=== PATIENT | female | born 1930 | race Caucasian/White ===

== ENCOUNTER → 2016-09-18 | Outpatient (CLI) | payer MEDICARE, OTHER, MEDICAID | END | disposition home or self-care (01) | LOC: GT 05:59 | PROVIDERS: ATTEND Family Medicine | DX: Z79.1 Long term (current) use of non-steroidal anti-inflammatories (NSAID) (principal); I25.2 Old myocardial infarction ==

== ENCOUNTER → 2016-10-23 | Outpatient (CLI) | payer MEDICARE, OTHER, MEDICAID | LOC: GT 08:48 | PROVIDERS: ATTEND Family Medicine | DX: I10 Essential (primary) hypertension (principal); D51.9 Vitamin B12 deficiency anemia, unspecified; E08.21 Diabetes mellitus due to underlying condition with diabetic nephropathy ==

== ENCOUNTER → 2016-11-20 | Outpatient (CLI) | payer MEDICARE, OTHER, MEDICAID | END | disposition home or self-care (01) | LOC: GT 07:11 | PROVIDERS: ATTEND Family Medicine | DX: I25.2 Old myocardial infarction (principal); Z79.01 Long term (current) use of anticoagulants ==

== ENCOUNTER → 2016-11-23 | Outpatient (CLI) | payer MEDICARE, OTHER, MEDICAID | END | disposition home or self-care (01) | LOC: GT 08:28 | PROVIDERS: ATTEND Family Medicine | DX: Z79.01 Long term (current) use of anticoagulants (principal); Z86.718 Personal history of other venous thrombosis and embolism ==

== ENCOUNTER → 2016-12-21 | Outpatient (CLI) | payer MEDICARE, OTHER, MEDICAID | END | disposition home or self-care (01) | LOC: LAB.O 06:35 | PROVIDERS: ATTEND Family Medicine | DX: Z79.01 Long term (current) use of anticoagulants (principal) ==

== ENCOUNTER → 2017-01-22 | Outpatient (CLI) | payer MEDICARE, OTHER, MEDICAID | END | disposition home or self-care (01) | LOC: GT 07:13 | PROVIDERS: ATTEND Family Medicine | DX: Z79.01 Long term (current) use of anticoagulants (principal) | CPT/HCPCS: 36415; 85610; P9603 ==

== ENCOUNTER → 2017-02-17 | Outpatient (CLI) | payer MEDICARE, OTHER, MEDICAID | END | disposition home or self-care (01) | LOC: GMAH 06:37 | PROVIDERS: ATTEND Family Medicine | DX: Z79.01 Long term (current) use of anticoagulants (principal) ==

== ENCOUNTER → 2017-03-03 | Outpatient (CLI) | payer MEDICARE, OTHER, MEDICAID | END | disposition home or self-care (01) | LOC: GT 07:07 | PROVIDERS: ATTEND Family Medicine | DX: I25.2 Old myocardial infarction (principal); D51.9 Vitamin B12 deficiency anemia, unspecified; E08.21 Diabetes mellitus due to underlying condition with diabetic nephropathy ==

== ENCOUNTER → 2017-03-16 | Outpatient (CLI) | payer MEDICARE, OTHER, MEDICAID | LOC: GT 06:01 | PROVIDERS: ATTEND Family Medicine | DX: Z79.01 Long term (current) use of anticoagulants (principal) | CPT/HCPCS: 36415; 85610; P9603 ==

== ENCOUNTER → 2017-03-19 | Outpatient (CLI) | payer MEDICARE, OTHER, MEDICAID | LOC: GT 06:09 | PROVIDERS: ATTEND Family Medicine | DX: I25.2 Old myocardial infarction (principal); Z79.01 Long term (current) use of anticoagulants ==

== ENCOUNTER → 2017-04-14 | Outpatient (CLI) | payer MEDICARE, OTHER, MEDICAID | LOC: GT 05:44 | PROVIDERS: ATTEND Family Medicine | DX: Z79.01 Long term (current) use of anticoagulants (principal) | CPT/HCPCS: 36415; 85610; P9603 ==

== ENCOUNTER → 2017-04-21 | Outpatient (CLI) | payer MEDICARE, OTHER, MEDICAID | END | disposition home or self-care (01) | LOC: GT 07:06 | PROVIDERS: ATTEND Family Medicine | DX: Z79.01 Long term (current) use of anticoagulants (principal); I25.2 Old myocardial infarction | CPT/HCPCS: 36415; 85610; P9603 ==

== ENCOUNTER → 2017-04-23 | Outpatient (CLI) | payer MEDICARE, OTHER, MEDICAID | END | disposition home or self-care (01) | LOC: GT 06:06 | PROVIDERS: ATTEND Family Medicine | DX: Z79.01 Long term (current) use of anticoagulants (principal); I25.2 Old myocardial infarction ==

== ENCOUNTER → 2017-04-28 | Outpatient (CLI) | payer MEDICARE, OTHER, MEDICAID | END | disposition home or self-care (01) | LOC: GT 06:34 | PROVIDERS: ATTEND Family Medicine | DX: Z79.01 Long term (current) use of anticoagulants (principal) | CPT/HCPCS: 36415; 85610; P9603 ==

== ENCOUNTER → 2017-05-12 | Outpatient (CLI) | payer MEDICARE, OTHER, MEDICAID | END | disposition home or self-care (01) | LOC: GT 06:00 | PROVIDERS: ATTEND Family Medicine | DX: Z79.01 Long term (current) use of anticoagulants (principal) ==

== ENCOUNTER → 2017-05-14 | Outpatient (CLI) | payer MEDICARE, OTHER, MEDICAID | END | disposition home or self-care (01) | LOC: GT 05:43 | PROVIDERS: ATTEND Family Medicine | DX: Z79.01 Long term (current) use of anticoagulants (principal) ==

== ENCOUNTER → 2017-05-21 | Outpatient (CLI) | payer MEDICARE, OTHER, MEDICAID | END | disposition home or self-care (01) | LOC: GT 06:09 | PROVIDERS: ATTEND Family Medicine | DX: Z79.01 Long term (current) use of anticoagulants (principal) ==

== ENCOUNTER → 2017-06-23 | Outpatient (CLI) | payer MEDICARE, OTHER, MEDICAID | END | disposition home or self-care (01) | LOC: GT 06:38 | PROVIDERS: ATTEND Family Medicine | DX: Z79.01 Long term (current) use of anticoagulants (principal); I25.2 Old myocardial infarction ==

== ENCOUNTER → 2017-06-30 | Outpatient (CLI) | payer MEDICARE, OTHER, MEDICAID | END | disposition home or self-care (01) | LOC: GT 08:02 | PROVIDERS: ATTEND Family Medicine | DX: Z79.01 Long term (current) use of anticoagulants (principal); I25.2 Old myocardial infarction ==

== ENCOUNTER → 2017-07-30 | Outpatient (CLI) | payer MEDICARE, OTHER, MEDICAID | END | disposition home or self-care (01) | LOC: GT 06:18 | PROVIDERS: ATTEND Family Medicine | DX: Z79.01 Long term (current) use of anticoagulants (principal); I25.2 Old myocardial infarction; I10 Essential (primary) hypertension ==

== ENCOUNTER → 2017-08-25 | Outpatient (CLI) | payer MEDICARE, OTHER, MEDICAID | LOC: GT 08:23 | PROVIDERS: ATTEND Family Medicine | DX: I10 Essential (primary) hypertension (principal); I25.2 Old myocardial infarction ==

== ENCOUNTER → 2017-09-09 | Outpatient (CLI) | payer MEDICARE, OTHER, MEDICAID | LOC: GT 08:44 | PROVIDERS: ATTEND Family Medicine | DX: Z79.01 Long term (current) use of anticoagulants (principal); I25.2 Old myocardial infarction; I10 Essential (primary) hypertension | CPT/HCPCS: 36415; 85610; P9603 ==

== ENCOUNTER → 2017-09-15 | Outpatient (CLI) | payer MEDICARE, OTHER, MEDICAID | LOC: GT 07:39 | PROVIDERS: ATTEND Family Medicine | DX: I25.2 Old myocardial infarction (principal); I10 Essential (primary) hypertension; Z79.01 Long term (current) use of anticoagulants ==

== ENCOUNTER → 2017-10-04 | Outpatient (CLI) | payer MEDICARE, OTHER, MEDICAID | LOC: GT 06:35 | PROVIDERS: ATTEND Family Medicine | DX: Z79.01 Long term (current) use of anticoagulants (principal) | CPT/HCPCS: 36415; 85610; P9603 ==

== ENCOUNTER → 2017-10-06 | Outpatient (CLI) | payer MEDICARE, OTHER, MEDICAID | LOC: GT 06:52 | PROVIDERS: ATTEND Family Medicine | DX: Z79.01 Long term (current) use of anticoagulants (principal) ==

== ENCOUNTER → 2017-10-07 | Outpatient (CLI) | payer MEDICARE, OTHER, MEDICAID | LOC: LAB.O 08:50 | PROVIDERS: ATTEND Family Medicine | DX: Z79.01 Long term (current) use of anticoagulants (principal) ==

== ENCOUNTER → 2017-10-13 | Outpatient (CLI) | payer MEDICARE, OTHER, MEDICAID | LOC: GT 06:43 | PROVIDERS: ATTEND Family Medicine | DX: I25.2 Old myocardial infarction (principal); I10 Essential (primary) hypertension; Z79.01 Long term (current) use of anticoagulants | CPT/HCPCS: 36415; 85610; P9603 ==

== ENCOUNTER → 2017-10-22 | Outpatient (CLI) | payer MEDICARE, OTHER, MEDICAID | END | disposition home or self-care (01) | LOC: GT 07:35 | PROVIDERS: ATTEND Family Medicine | DX: D51.9 Vitamin B12 deficiency anemia, unspecified (principal); Z79.01 Long term (current) use of anticoagulants ==

== ENCOUNTER → 2017-11-10 | Outpatient (CLI) | payer MEDICARE, OTHER, MEDICAID | LOC: GT 06:51 | PROVIDERS: ATTEND Family Medicine | DX: Z79.01 Long term (current) use of anticoagulants (principal) | CPT/HCPCS: 36415; 85610; P9603 ==

== ENCOUNTER 2018-01-21 11:08 | Emergency (ER) | payer MEDICARE, OTHER ==
--- NOTE | 2018-01-21 11:46 | ED.PDOC ---
History of Present Illness - General Chief Complaint: Back Pain or Injury Stated Complaint: Low back discomfort Time Seen by Provider: 01/21/18 11:09 Source: patient, EMS Exam Limitations: no limitations - History of Present Illness Initial Comments: Kaitlynn Salazar 87 y/o female NH resident at [facility] patient stated felt dizzy after trying to get up from her bed and fell on her back today.Stated has dull pain lower back denies any other injuries elsewhere.Remembers incident.No LOC.Past records showed that she had compressed fractures lower back,HTN,DVT on anticoagulation.No bowel or bladder dysfunction. Timing/Duration: 1-3 hours Quality/Severity: moderate, dullness Back Pain Location: lumbar spine, paraspinous muscles Back Pain Radiation: other - none Method of Injury/Prior Injury: fell Improving Factors: rest Worsening Factors: movement Associated Symptoms: lower back pain Allergies/Adverse Reactions: Allergies NO KNOWN ALLERGY Allergy (Verified 01/21/18 11:27) Home Medications: Ambulatory Orders Simvastatin 40 mg PO BEDTIME 01/01/14 Warfarin Sodium [Coumadin] 2.5 mg PO SUTUTHSA 01/01/14 Warfarin Sodium [Coumadin] 5 mg PO MOWEFR 01/01/14 amLODIPine BESYLATE [Norvasc] 5 mg PO DAILY #0 tab 01/02/14 Potassium Chloride [Potassium Chloride ER] 20 meq PO BID #4 tab 11/19/14 Acetaminophen [Pain Relief Extra Strengt] 1 - 2 ea PO Q6H PRN 08/28/15 Losartan Potassium & Hydrochlo [Losartan Potassium/Hydroc 100-25 mg] 1 tab PO DAILY 08/28/15 Polyethylene Glycol 3350 [Miralax] 17 gm PO DAILY PRN 08/28/15 Meloxicam [Mobic] 7.5 mg PO DAILY #30 tab 10/02/15 Metformin HCl 500 mg PO BEDTIME #0 10/02/15 Tramadol HCl 50 mg PO Q6H PRN #20 tab 10/02/15 Lidocaine [Lidoderm] 5 % TOP Q12HR #7 dis 10/05/15 Acetamin W/Cod #3 Tab [Tylenol w/CODEINE #3] 1 ea PO Q12HRS PRN #20 tab Losartan Potassium & Hydrochlo [Losartan Potassium/Hydroc 100-12.5 mg] 1 tab PO DAILY #30 tab 01/21/18 Review of Systems - Review of Systems Constitutional: States: no symptoms reported EENTM: States: no symptoms reported Respiratory: States: no symptoms reported Cardiology: States: no symptoms reported Genitourinary: States: no symptoms reported Musculoskeletal: States: back pain - chronic Skin: States: no symptoms reported Neurological: States: other - dizziness Endocrine: States: no symptoms reported Hematologic/Lymphatic: States: no symptoms reported Past Medical History (General) - Patient Medical History Hx Seizures: No Hx Stroke: No Hx Asthma: No Hx of COPD: No Hx Cardiac Disorders: Yes - hypercholesterolemia; DC; DVT Hx Congestive Heart Failure: No Hx Pacemaker: No Hx Hypertension: Yes Hx Diabetes: Yes Hx Gastroesophageal Reflux: Yes Hx MRSA: No Surgical History: other - both knees - Vaccination History Hx Influenza Vaccination: Yes Hx Pneumococcal Vaccination: Yes - Social History Hx Tobacco Use: No Hx Alcohol Use: No Hx Substance Use: No Hx Physical Abuse: No Hx Emotional Abuse: No - Activities of Daily Living [facility]/Assisted Living (if applicable):: [facility] Grooming Ability: Standby Assistance Eating (Feeding) Ability: Standby Assistance Toileting Ability: Standby Assistance Family Medical History - Family History Father Family History: Unknown Living Status: Age at (years of age): 80s Cause of : Cancer Mother Living Status: Age at (years of age): 70s Cause of : Cancer Physical Exam - Physical Exam General Appearance: Alert, Comfortable, No apparent distress Eyes, Ears, Nose, Throat Exam: normal ENT inspection, pharynx normal Neck Exam: non-tender, full range of motion, normal inspection Cardiovascular/Respiratory: regular rate, rhythm, no M/R/G, normal peripheral pulses, no JVD Peripheral Pulses: radial,right: 2+, radial,left: 2+ Gastrointestinal/Abdominal: normal bowel sounds, non tender, soft, no pulsatile mass Back Exam: no CVA tenderness, no vertebral tenderness Extremity Exam: no evidence of injury, normal range of motion, pedal edema - 3+ Neurologic: no motor/sensory deficits, alert, oriented x 3 Skin Exam: normal color, warm/dry Progress - Progress Progress: 01/21/18 11:49 Vital Signs - 8 hr 01/21/18 11:18 Temperature 97.1 F L Pulse Rate [ 72 Left Radial] Respiratory 18 Rate Blood Pressure 123/76 [Left Arm] O2 Sat by Pulse 95 Oximetry 01/21/18 13:46 Vital Signs - 8 hr 01/21/18 11:18 Temperature 97.1 F L Pulse Rate [ 72 Left Radial] Respiratory 18 Rate Blood Pressure 123/76 [Left Arm] O2 Sat by Pulse 95 Oximetry - Results/Orders Results/Orders: 01/21/18 11:49 IV Care:Saline Lock per Protoc QSHIFT 01/21/18 11:51 EKG Assessment ONCE 01/21/18 12:00 EKG STAT 01/21/18 12:10 URINE CULTURE W/COLONY COUNT Stat 01/21/18 13:18 Magnesium Sulfate Premix 2Gm 2 gm Premix Bag 1 bag IVPB ONCE Laboratory Results - last 24 hr 01/21/18 01/21/18 01/21/18 12:10 12:10 13:15 WBC 12.3 H RBC 4.54 Hgb 14.5 Hct 42.6 MCV 93.9 MCH 32.0 H MCHC 34.1 RDW 14.5 Plt Count 253 MPV 7.5 Absolute Neuts (auto) 10.50 H Absolute Lymphs (auto) 1.00 Absolute Monos (auto) 0.80 Absolute Eos (auto) 0.00 Absolute Basos (auto) 0.00 Neutrophils % 85.0 H Lymphocytes % 8.1 L Monocytes % 6.6 Eosinophils % 0.1 L Basophils % 0.2 PT 45.2 H* INR 3.950 H* PTT (SP) 54.8 H Sodium 127 L Potassium 3.8 Chloride 93 L Carbon Dioxide 24 Anion Gap 13.8 BUN 23 H Creatinine 0.74 BUN/Creatinine Ratio 31.1 H Random Glucose 135 H Serum Osmolality 260.9 L Lactic Acid 1.1 Calcium 10.0 Magnesium 1.6 L Total Bilirubin 0.8 Direct Bilirubin 0.2 Indirect Bilirubin 0.6 AST 21 ALT 18 Alkaline Phosphatase 65 Creatine Kinase 62 CK-MB (CK-2) 5.5 H* CK-MB (CK-2) % Not Reportable Troponin I < 0.02 B-Natriuretic Peptide 45.5 Serum Total Protein 7.2 Albumin 4.1 Urine Color Cookie H Urine Appearance Sl cloudy Urine pH 6.5 Ur Specific [place] 1.025 Urine Protein Negative Urine Glucose (UA) Negative Urine Ketones Negative Urine Blood Trace-intact H Urine Nitrite Negative Urine Bilirubin Negative Urine Urobilinogen 0.2 Ur Leukocyte Esterase Small H Urine RBC 1-3 Urine WBC 3-5 H Ur Epithelial Cells 1-3 Urine Bacteria 1+ Urine Mucus Small - EKG/XRAY/CT EKG: Sinus, RBBB Comments: HR-71;narrow Q-waves 111 XRAY: chest - cardiomegaly no chf Xray Comments: Lumbar Spine old compressed FX lumbar spine Departure - Departure Clinical Impression: Dizziness, nonspecific, Chronic hyponatremia, Hypomagnesemia Fall at residential Qualifiers: Encounter type: initial encounter Qualified Code(s): W19.XXXA - Unspecified fall, initial encounter; Y92.129 - Unspecified place in residential as the place of occurrence of the external cause Back pain Qualifiers: Back pain location: low back pain Chronicity: unspecified Back pain laterality : midline Sciatica presence: without sciatica Qualified Code(s): M54.5 - Low back pain Time of Disposition: 14:26 Disposition: Discharge to Asst Living Condition: Fair Departure Forms: ED Discharge - Pt. Copy, Patient Portal Self Enrollment Instructions: DI for Low Back Pain, Dizziness, Nonvertigo, (DC) Referrals: Koha Reveles MD [Primary Care Provider] - 1-2 Weeks Prescriptions: Acetamin W/Cod #3 Tab [Tylenol w/CODEINE #3] 1 ea PO Q12HRS PRN #20 tab PRN Reason: Pain Losartan Potassium & Hydrochlo [Losartan Potassium/Hydroc 100-12.5 mg] 1 tab PO DAILY #30 tab Home Medications: Ambulatory Orders Simvastatin 40 mg PO BEDTIME 01/01/14 Warfarin Sodium [Coumadin] 2.5 mg PO SUTUTHSA 01/01/14 Warfarin Sodium [Coumadin] 5 mg PO MOWEFR 01/01/14 amLODIPine BESYLATE [Norvasc] 5 mg PO DAILY #0 tab 01/02/14 Potassium Chloride [Potassium Chloride ER] 20 meq PO BID #4 tab 11/19/14 Acetaminophen [Pain Relief Extra Strengt] 1 - 2 ea PO Q6H PRN 08/28/15 Losartan Potassium & Hydrochlo [Losartan Potassium/Hydroc 100-25 mg] 1 tab PO DAILY 08/28/15 Polyethylene Glycol 3350 [Miralax] 17 gm PO DAILY PRN 08/28/15 Meloxicam [Mobic] 7.5 mg PO DAILY #30 tab 10/02/15 Metformin HCl 500 mg PO BEDTIME #0 10/02/15 Tramadol HCl 50 mg PO Q6H PRN #20 tab 10/02/15 Lidocaine [Lidoderm] 5 % TOP Q12HR #7 dis 10/05/15 Acetamin W/Cod #3 Tab [Tylenol w/CODEINE #3] 1 ea PO Q12HRS PRN #20 tab Losartan Potassium & Hydrochlo [Losartan Potassium/Hydroc 100-12.5 mg] 1 tab PO DAILY #30 tab 01/21/18 Additional Instructions: HOLD COUMADIN FOR TODAY AND TOMORROW;RESUME Wednesday;Discontinue Losartan 100-25;Give Losartan 100-12.5 daily for high blood pressure.Follow up with primary Md 24 January 2018;Return to ER as needed
--- NOTE | 2018-01-21 12:54 | RAD ---
EXAM DESCRIPTION: Chest,1 View CLINICAL HISTORY: 87 years Female, dizzy COMPARISON: Previous study November 19, 2014 TECHNIQUE: AP portable chest. FINDINGS: Heart size is large with normal pulmonary vascularity. Calcified aorta is noted. No consolidating infiltrate. No pulmonary mass or worrisome nodule. No pneumothorax or pleural effusion. Degenerative changes are prominent in the right shoulder. IMPRESSION: Large heart without congestive failure. Electronically signed by: Abbe Villela MD 01/21/2018 12:53 PM CDT
--- NOTE | 2018-01-21 12:57 | RAD ---
EXAM DESCRIPTION: Lumbar Spine 3 Views CLINICAL HISTORY: fall/pain COMPARISON: None Available. TECHNIQUE: AP/lateral/coned-down lateral FINDINGS: Leftward curvature of the lower thoracic and upper lumbar spine is seen with extensive degenerative spurring. Calcified aorta is noted which appears ectatic. Correlate with CT or sono findings. Aorta measures up to 2.8 cm in diameter. Frontal view shows intact pedicles and transverse processes. Sacrum appears osteopenic with narrow SI joints. Lateral view shows no acute lumbar vertebral compressions. However chronic vertebral plana compression is seen at L1 with extensive resorption of the middle and anterior aspects of the compressed vertebral body. Lesser compressions in the lower T-spine appear chronic. Severe disc space narrowing is seen at L3-4 with lesser changes at L1-2 and L2-3 with prominent anterior posterior spurring. Degenerative retrolisthesis of L3 on L4 is noted measuring 9 mm. Bones are markedly osteoporotic. No destructive lesion. 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 Calcified ectatic abdominal aorta. Electronically signed by: Abbe Villela MD 01/21/2018 12:56 PM CDT
[2018-01-21] MEDS ORDERED: MAGNESIUM SULFATE PREMIX 2GM 2 GM in PREMIX BAG 1 BAG IVPB ONE (13:18)
[2018-01-21] MEDS ORDERED: MAGNESIUM SULFATE PREMIX 2GM 50 ML IVPB ONE (13:26)
[2018-01-21 16:49] VITALS: BP 134/72; TEMP 96.8; O2SAT 95
== END 2018-01-21 16:35 ==
LOC: ER 11:08
DX: M54.5 Low back pain (principal); R42 Dizziness and giddiness; E87.1 Hypo-osmolality and hyponatremia; E83.42 Hypomagnesemia; I45.10 Unspecified right bundle-branch block; I51.7 Cardiomegaly; I25.2 Old myocardial infarction; I10 Essential (primary) hypertension; E11.9 Type 2 diabetes mellitus without complications; K21.9 Gastro-esophageal reflux disease without esophagitis; Z86.718 Personal history of other venous thrombosis and embolism; Z79.01 Long term (current) use of anticoagulants; W19.XXXA Unspecified fall, initial encounter; Y92.122 Bedroom in nursing home as the place of occurrence of the external cause
CPT/HCPCS: 36415; 71045; 72100; 80048; 80076; 81001; 82550; 82553; 83605; 83880; 84484; 85025; 85610; 85730; 87086; 93005; J3475

== ENCOUNTER → 2018-03-15 | Outpatient (CLI) | payer MEDICARE, OTHER | LOC: GMAH 14:34 | PROVIDERS: ATTEND Family Medicine | DX: N39.0 Urinary tract infection, site not specified (principal) ==

== ENCOUNTER → 2019-01-31 | Outpatient (CLI) | payer MEDICARE, OTHER | LOC: GT 11:47 | PROVIDERS: ATTEND Family Medicine | DX: N39.0 Urinary tract infection, site not specified (principal) ==

== ENCOUNTER 2019-03-06 13:40 | Inpatient (IN) | payer MEDICARE, OTHER ==
--- NOTE | 2019-03-06 14:33 | RAD ---
EXAM DESCRIPTION: Abdomen Series CLINICAL HISTORY: ams COMPARISON: None. FINDINGS: AP supine and upright views of the abdomen show a nonspecific, nonobstructive bowel gas pattern with no evidence for free intraperitoneal air. Increased density in the lower abdomen to pelvis region is seen. Mildly dilated air-filled loops of small bowel and colon throughout the abdomen are seen. No significant air-fluid levels. Single view of the chest shows moderate patient rotation. Cardiac silhouette is enlarged without pulmonary vascular congestion. Tortuosity the thoracic aorta is seen. Increased density in the right hilar region is probably related to poor patient positioning rather than mass or pulmonary infiltrate. No pleural effusion or pneumothorax. Severe degenerative changes of the spine are seen. IMPRESSION: Nonspecific abdominal series. Increased density in the lower abdomen to pelvis likely represents distended urinary bladder. Stable chronic changes. Electronically signed by: Manfred Kraft MD 03/06/2019 2:31 PM CDT
[2019-03-06] MEDS ORDERED: SODIUM CHLORIDE 0.9% 1000ML 1,000 ML IVS ONE ×2 (15:51→15:55)
--- NOTE | 2019-03-06 16:49 | CT ---
EXAM: CT Chest Without Intravenous Contrast CLINICAL HISTORY: leukocytosis, elevated trop, abd pain TECHNIQUE: Axial computed tomography images of the chest without intravenous contrast. Sagittal and coronal reformatted images were created and reviewed. This CT exam was performed using one or more of the following dose reduction techniques: automated exposure control, adjustment of the mA and/or kV according to patient size, and/or use of iterative reconstruction technique. COMPARISON: No relevant prior studies available. FINDINGS: Limitations: None. Lungs: Mild chronic airway thickening present. There is mild bilateral lower lobe atelectasis. Pleural space: Unremarkable. No pneumothorax. No significant effusion. Heart: Unremarkable. No cardiomegaly. No significant pericardial effusion. Bones/joints: Unremarkable. No acute fracture. No dislocation. Soft tissues: Unremarkable. Vasculature: There is dilatation and tortuosity of the aorta. Ascending aorta measures 3.9 cm maximal diameter. Atherosclerotic calcification present. Lymph nodes: Unremarkable. No enlarged lymph nodes. Gallbladder and bile ducts: Layering sludge and stones noted in the gallbladder. IMPRESSION: 1. Mild chronic airway thickening and basilar atelectasis. 2. Cholelithiasis. Electronically signed by: Kimberley Hooks MD 03/06/2019 4:47 PM CDT
--- NOTE | 2019-03-06 16:57 | CT ---
EXAM: CT Abdomen and Pelvis Without Intravenous Contrast CLINICAL HISTORY: leukocytosis, elevated trop, abd pain TECHNIQUE: Axial computed tomography images of the abdomen and pelvis without intravenous contrast. Sagittal and coronal reformatted images were created and reviewed. This CT exam was performed using one or more of the following dose reduction techniques: automated exposure control, adjustment of the mA and/or kV according to patient size, and/or use of iterative reconstruction technique. COMPARISON: No relevant prior studies available. FINDINGS: Limitations: None. Lung bases: Unremarkable. No mass. No consolidation. ABDOMEN: Liver: Unremarkable. Gallbladder and bile ducts: Layering sludge and stones noted in the gallbladder which is distended. No ductal dilation. Pancreas: Unremarkable. No ductal dilation. Spleen: Unremarkable. No splenomegaly. Adrenals: Nodular bilateral adrenal enlargement noted. Kidneys and ureters: Unremarkable. No obstructing stones. No hydronephrosis. Stomach and bowel: There is typical amounts of colonic stool throughout the colon with scattered diverticula. No inflammatory process noted. No obstruction. No mucosal thickening. PELVIS: Appendix: No findings to suggest acute appendicitis. Bladder: Urinary bladder is distended and appears mildly inflamed. No stones. Reproductive: Hysterectomy. ABDOMEN and PELVIS: Intraperitoneal space: Unremarkable. No free air. No significant fluid collection. Bones/joints: There is marked compression of L1 and at least in part chronic. Multilevel moderate to severe degenerative changes present. There is kyphoscoliosis. No dislocation. Soft tissues: Unremarkable. Vasculature: Atherosclerosis of the aorta and branches. No abdominal aortic aneurysm. Lymph nodes: Unremarkable. No enlarged lymph nodes. IMPRESSION: 1. Marked compression fracture of L1 which is at least in part chronic. Compression has significantly progressed since comparison CT examination of 10/01/2015. Correlate clinically. 2. Distended urinary bladder. Correlate with urinalysis for cystitis given mild thickening. 3. The urinary bladder is distended with sludge and stones. If additional imaging is clinically warranted, sonography is the modality of choice. Electronically signed by: Kimberley Hooks MD 03/06/2019 4:55 PM CDT
[2019-03-06] MEDS ORDERED: PIPERACILLIN/TAZOBACTAM 3.375 GM in SODIUM CHLORIDE 0.9% 100ML 100 ML IVPB ONE (17:18)
[2019-03-06] MEDS ORDERED: MORPHINE SULFATE INJ 10 MG/ML VIAL IV ONE (17:18)
[2019-03-06] MEDS ORDERED: PIPERACILLIN/TAZOBACTAM 3.375 GM VIAL IVPB ONE ×2 (17:38→20:52)
[2019-03-06] MEDS ORDERED: SODIUM CHLORIDE 0.9% 100ML 100 ML IVPB ONE (17:38)
--- NOTE | 2019-03-06 17:51 | ED.PDOC ---
History of Present Illness - General Chief Complaint: General Stated Complaint: snf sending for failure to thrive Time Seen by Provider: 03/06/19 13:42 Source: patient Exam Limitations: clinical condition - History of Present Illness Initial Comments: the patient's 88-year-old female with some long-standing dementia presenting secondary toacute confused state and obvious increased pain. The patient does have numerous long-standing skin changes some of which may actually be skin cancer. The patient was apparently in her normal demented state yesterday but this morning she is not really responding appropriately to people. She will moan and groan. She opens her eyes spontaneously she mumbles things. No focal neurological deficits. She seems to be able to eat and drink okay. She does have pain to palpation of the abdomen diffusely. No obvious evidence of acute trauma. Timing/Duration: other - H 10 hours Severity: severe Improving Factors: nothing Worsening Factors: nothing Associated Symptoms: loss of appetite, malaise Allergies/Adverse Reactions: Allergies NO KNOWN ALLERGY Allergy (Verified 01/21/18 11:27) Home Medications: Ambulatory Orders Simvastatin 40 mg PO BEDTIME 01/01/14 Warfarin Sodium [Coumadin] 2.5 mg PO SUTUTHSA 01/01/14 Warfarin Sodium [Coumadin] 5 mg PO MOWEFR 01/01/14 amLODIPine BESYLATE [Norvasc] 5 mg PO DAILY #0 tab 01/02/14 Potassium Chloride [Potassium Chloride ER] 20 meq PO BID #4 tab 11/19/14 Acetaminophen [Pain Relief Extra Strengt] 1 - 2 ea PO Q6H PRN 08/28/15 Losartan Potassium & Hydrochlo [Losartan Potassium/Hydroc 100-25 mg] 1 tab PO DAILY 08/28/15 Polyethylene Glycol 3350 [Miralax] 17 gm PO DAILY PRN 08/28/15 Meloxicam [Mobic] 7.5 mg PO DAILY #30 tab 10/02/15 Metformin HCl [Metformin Hydrochloride] 500 mg PO BEDTIME #0 10/02/15 Tramadol HCl 50 mg PO Q6H PRN #20 tab 10/02/15 Lidocaine [Lidoderm] 5 % TOP Q12HR #7 dis 10/05/15 Acetamin W/Cod #3 Tab [Tylenol w/CODEINE #3] 1 ea PO Q12HRS PRN #20 tab 01/21/18 Losartan Potassium & Hydrochlo [Losartan Potassium/Hydroc 100-12.5 mg] 1 tab PO DAILY #30 tab 01/21/18 Review of Systems - Review of Systems Constitutional: States: malaise EENTM: States: no symptoms reported Respiratory: States: no symptoms reported Cardiology: States: no symptoms reported Gastrointestinal/Abdominal: States: abdominal pain Genitourinary: States: no symptoms reported Musculoskeletal: States: no symptoms reported Skin: States: no symptoms reported Neurological: States: see HPI Endocrine: States: no symptoms reported All other Systems: No Change from Baseline Past Medical History (General) - Patient Medical History Hx Seizures: No Hx Stroke: No Hx Dementia: Yes Hx Asthma: No Hx of COPD: No Hx Cardiac Disorders: Yes Hx Congestive Heart Failure: No Hx Pacemaker: No Hx Hypertension: Yes Hx Thyroid Disease: Yes Hx Diabetes: No Hx Gastroesophageal Reflux: Yes Hx Renal Disease: No Hx Cancer: No Hx of HIV: No Hx Hepatitis C: No Hx MRSA: No - Vaccination History Hx Tetanus, Diphtheria Vaccination: Yes Hx Influenza Vaccination: Yes Hx Pneumococcal Vaccination: Yes Immunizations Up to Date: Yes - Social History Hx Tobacco Use: No Hx Chewing Tobacco Use: No Hx Alcohol Use: No Hx Substance Use: No Hx Substance Use Treatment: No Hx Depression: No Feels Threatened In Home Enviroment: No Feels Threatened In a Relationship: No Hx Physical Abuse: No Hx Emotional Abuse: No Hx Suspected Abuse: No - Activities of Daily Living [facility]Assisted Living (if applicable):: [facility] - Female History Patient is a Female of Child Bearing Age (10 -59 yrs old): No Patient : No Family Medical History - Family History Father Family History: Unknown Living Status: Age at (years of age): 80s Cause of : Cancer Mother Family History: No Known Living Status: Age at (years of age): 70s Cause of : Cancer Hx Family Asthma: No Hx Family Congestive Heart Failure: No Hx Family Hypertension: No Hx Family Stroke: No Hx Cardiac Disease: No Hx Family Diabetes: No Hx Family Cancer: No Physical Exam - Physical Exam General Appearance: Alert, Anxious, Frail, Obvious distress, Ill Appearing Eye Exam: bilateral normal Ears, Nose, Throat: normal ENT inspection Neck: full range of motion, supple Respiratory: lungs clear, normal breath sounds, no respiratory distress, no accessory muscle use Cardiovascular/Chest: normal peripheral pulses, no edema, other Peripheral Pulses: radial,right: 2+, radial,left: 2+ Gastrointestinal/Abdominal: non tender, soft Rectal Exam: deferred Back Exam: no CVA tenderness, no vertebral tenderness Extremity: normal range of motion, no pedal edema, no calf tenderness, normal capillary refill 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, alert, disoriented x 3 Skin Exam: pallor Comments: Vital Signs - 24 hr 03/06/19 03/06/19 03/06/19 13:43 13:45 15:08 Temperature 97.7 F Pulse Rate [ 104 H 95 H Left Apical] Respiratory 18 24 18 Rate Blood Pressure 99/66 94/66 [Left Arm] O2 Sat by Pulse 90 L 95 Oximetry 03/06/19 03/06/19 16:00 17:00 Temperature Pulse Rate [ 114 H Left Apical] Respiratory 20 Rate Blood Pressure 89/53 121/75 [Left Arm] O2 Sat by Pulse 92 L 95 Oximetry Progress - Progress Progress: 03/06/19 17:55 the patient is a 8-year-old female with some long-standing dementia presenting with altered mental status due to what appears to be sepsis likely from a urinary tract infection. More than a liter was drained out of her bladder. She was obviously having some urinary retention and the urine is some of the worst looking urine i have seen in 20 years. the patient is obviously septic. She is receiving IV fluids and Zosyn. urine and blood cultures are being performed of course. The patient does have some sludging on the gallbladder but she does not appear to have pain in the right upper quadrant at this time on palpation. If that changes tomorrow then a ultrasound directed that it may be warranted. The patient does have a troponin leak. This is likely a stress-induced ischemia. The patient is not a good candidate for interventional cardiology at this time. Family does understand this. Repeat EKGs can be performed through the hospital stay. Obviously if the patient's cardiac status changes for the worse then intervention may be forced. she is receiving aspirin for now. Decompressing the bladder seems to have relieved the patient's pain. She is resting comfortably currently. - Results/Orders Results/Orders: 03/06/19 13:50 Telemetry .CONTINUOUS 03/06/19 14:07 BLOOD CULTURE Stat 03/06/19 15:30 EKG STAT 03/06/19 17:18 Piperacillin/Tazobactam [Zosyn] 3.375 gm Sodium Chloride 0.9% 100Ml [NS (NACL 0.9%) 100ml] 100 ml IVPB ONCE 03/06/19 17:30 Urine Culture Stat Laboratory Results - last 24 hr 03/06/19 03/06/19 03/06/19 14:07 14:07 14:07 WBC 19.6 H RBC 4.04 L Hgb 13.0 Hct 39.8 MCV 98.5 MCH 32.3 H MCHC 32.8 L RDW 14.5 Plt Count 220 MPV 8.3 Absolute Neuts (auto) 17.50 H Absolute Lymphs (auto) 0.50 L Absolute Monos (auto) 1.50 H Absolute Eos (auto) 0.00 Absolute Basos (auto) 0.00 Neutrophils % 89.2 H Lymphocytes % 2.8 L Monocytes % 7.9 Eosinophils % 0.0 L Basophils % 0.1 PT 31.4 H* INR 3.18 H PTT (SP) 35.3 H Sodium 138 Potassium 4.3 Chloride 110 Carbon Dioxide 18 L Anion Gap 14.3 BUN 52 H Creatinine 0.88 BUN/Creatinine Ratio 59.1 H Random Glucose 126 H Serum Osmolality 291.3 Lactic Acid Calcium 9.5 Magnesium 1.7 L Total Bilirubin 1.4 H AST 26 ALT 16 Alkaline Phosphatase 40 L Creatine Kinase 151 H CK-MB (CK-2) 6.4 H* CK-MB (CK-2) % 4.24 Troponin I 0.32 H* B-Natriuretic Peptide 271.0 H* Serum Total Protein 5.6 L Albumin 3.0 L Globulin 2.6 Albumin/Globulin Ratio 1.2 Amylase 27 L Lipase 21 L Urine Color Urine Appearance Urine pH Ur Specific [place] Urine Protein Urine Glucose (UA) Urine Ketones Urine Blood Urine Nitrite Urine Bilirubin Urine Urobilinogen Ur Leukocyte Esterase Urine RBC Urine WBC Ur Epithelial Cells Amorphous Sediment Urine Bacteria Urine Mucus 03/06/19 03/06/19 14:07 17:30 WBC RBC Hgb Hct MCV MCH MCHC RDW Plt Count MPV Absolute Neuts (auto) Absolute Lymphs (auto) Absolute Monos (auto) Absolute Eos (auto) Absolute Basos (auto) Neutrophils % Lymphocytes % Monocytes % Eosinophils % Basophils % PT INR PTT (SP) Sodium Potassium Chloride Carbon Dioxide Anion Gap BUN Creatinine BUN/Creatinine Ratio Random Glucose Serum Osmolality Lactic Acid 2.4 H* Calcium Magnesium Total Bilirubin AST ALT Alkaline Phosphatase Creatine Kinase CK-MB (CK-2) CK-MB (CK-2) % Troponin I B-Natriuretic Peptide Serum Total Protein Albumin Globulin Albumin/Globulin Ratio Amylase Lipase Urine Color Brown H Urine Appearance Cloudy Urine pH 7.0 Ur Specific [place] 1.025 Urine Protein >=300 H Urine Glucose (UA) Negative Urine Ketones 15 H Urine Blood Large H Urine Nitrite Negative Urine Bilirubin Small H Urine Urobilinogen 0.2 Ur Leukocyte Esterase Large H Urine RBC 20-30 H Urine WBC Tntc H Ur Epithelial Cells 0 Amorphous Sediment 1+ Urine Bacteria 4+ H Urine Mucus Trace EKG shows sinus tachycardia at 115 bpm. She does have a right bundle branch block. She does have scattered nonspecific T-wave changes. She does have what may be Q waves in inferior leads. Difficult to assess further secondary to tremor. Chest x-ray showsno definitive acute pathology. cT of abdomen shows a dilated bladder as well as sludging in the gallbladder but no obvious ductal dilation. CT of his chest shows no obvious acutenew pathology. Departure - Departure Clinical Impression: Cystitis, Urinary retention, Delirium Sepsis Qualifiers: Sepsis type: sepsis due to unspecified organism Qualified Code(s): A41.9 - Sepsis, unspecified organism Disposition: Admit Patient Condition: Serious Departure Forms: ED Discharge - Pt. Copy, Patient Portal Self Enrollment Referrals: Khoa Reveles MD [Primary Care Provider] - 1-2 Weeks Home Medications: Ambulatory Orders Simvastatin 40 mg PO BEDTIME 01/01/14 Warfarin Sodium [Coumadin] 2.5 mg PO SUTUTHSA 01/01/14 Warfarin Sodium [Coumadin] 5 mg PO MOWEFR 01/01/14 amLODIPine BESYLATE [Norvasc] 5 mg PO DAILY #0 tab 01/02/14 Potassium Chloride [Potassium Chloride ER] 20 meq PO BID #4 tab 11/19/14 Acetaminophen [Pain Relief Extra Strengt] 1 - 2 ea PO Q6H PRN 08/28/15 Losartan Potassium & Hydrochlo [Losartan Potassium/Hydroc 100-25 mg] 1 tab PO DAILY 08/28/15 Polyethylene Glycol 3350 [Miralax] 17 gm PO DAILY PRN 08/28/15 Meloxicam [Mobic] 7.5 mg PO DAILY #30 tab 10/02/15 Metformin HCl [Metformin Hydrochloride] 500 mg PO BEDTIME #0 10/02/15 Tramadol HCl 50 mg PO Q6H PRN #20 tab 10/02/15 Lidocaine [Lidoderm] 5 % TOP Q12HR #7 dis 10/05/15 Acetamin W/Cod #3 Tab [Tylenol w/CODEINE #3] 1 ea PO Q12HRS PRN #20 tab 01/21/18 Losartan Potassium & Hydrochlo [Losartan Potassium/Hydroc 100-12.5 mg] 1 tab PO DAILY #30 tab 01/21/18 Decision To Admit - Decistion To Admit Decision to Admit Reason: Medical Nature Decision to Admit Date: 03/06/19 Decision to Admit Time: 18:00
[2019-03-06] MEDS ORDERED: ASPIRIN TABLET 325 MG TAB PO ONE (17:58)
--- NOTE | 2019-03-06 19:14 | HP ---
SUPERVISING PHYSICIAN: Nimesh Peña MD CHIEF COMPLAINT: Change in mental status. HISTORY OF PRESENT ILLNESS: This is an 88 year-old female patient [facility]. She has a longstanding history of dementia. In the last day or so she has not responded to others like she has in the past. Her mental status has declined. She also was complaining of abdominal pain. Yesterday, she was in her normal mental status which is severe dementia but today she was only moaning and groaning. She was brought to the Emergency Room and in the Emergency Room vital signs were temperature of 97.7 with a heart rate of 104. Her blood pressure was as low as 89/53 and dropped to as low as 62/47. She received some fluids and then her blood pressure came up to 100/80. A Lee catheter was placed and a urinalysis was obtained. Her urinalysis showed brown in color with greater than 300 of protein, 15 urine ketones, large amount of urine blood, small amount of urine bilirubin, large amount of urine leukocyte esterase, 20 to 30 urine RBCs, too numerous to count WBCs and 4+ urine bacteria. Laboratory was also drawn and her WBCs were 19,600 with a hemoglobin of 13 and hematocrit of 39.8. She had a left shift on her differential. Her INR was 3.18. She is on Warfarin therapy for DVTs. Sodium 138, potassium 4.3, chloride 110, carbon dioxide 18, BUN 52, creatinine 0.88. Random glucose was 126. Serum osmolality 291.3 with lactic acid of 2.4. Followup lactic acid was 1.9. Magnesium 1.7, total bilirubin 1.4. Alkaline phosphatase 40, creatinine kinase 151. CKMB 6.4, troponin 0.32. She had no complaints of chest pain. 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 Her BNP was slightly elevated at 271. Serum total protein was 5.6 with albumin of 3. Amylase 27, lipase 21. Blood cultures wee drawn. A culture was done on her urine. She was started on Zosyn and I was called for hospital admission. PAST MEDICAL HISTORY: 1. Alzheimer's dementia. 2. Hypertension on medication. 3. Generalized osteoarthritis. 4. History of DVTs. 5. Hyperlipidemia. 6. Type 2 diabetes mellitus, presently diet controlled. 7. Depression. PAST SURGICAL HISTORY: 1. Bilateral knee arthroscopy. 2. Hysterectomy. CURRENT MEDICATIONS: Per the EMR and awaiting verification. ALLERGIES: No known drug allergies. FAMILY HISTORY: SOCIAL HISTORY: She is . She lives at [facility]. There is no history of tobacco, ETOH or illicit drug use. REVIEW OF SYSTEMS: Unable to obtain due to patient's mental status. PHYSICAL EXAMINATION: VITAL SIGNS: Temperature 98, heart rate 104, blood pressure 99.69, respiratory rate 20, oxygen saturation 96% on 2 liters nasal cannula. GENERAL: This is an 88 year-old frail female lying in her hospital bed. She is in no acute distress. HEENT: Normocephalic and atraumatic. Pupils are equal and reactive. NECK: Supple without mass. CHEST: Essentially clear to auscultation bilaterally. There is equal rise and fall of the chest wt inspiration and expiration. CARDIOVASCULAR: Tachycardiac rate, regular rhythm. ABDOMEN: Soft, nondistended. Bowel sounds are positive. EXTREMITIES: No cyanosis, clubbing, or edema. NEUROLOGIC: She is lethargic and is nonverbal. SKIN: She has multiple lesions on her face as well as her bilateral arms that are skin tags and possible skin cancers. It is warm and dry. LABORATORY: As per the history of present illness. RADIOLOGY: Chest CT shows: 1. Mild chronic airway thickening and basilar atelectasis. 2. Cholelithiasis. Abdomen/pelvis CT shows: 1. Marked compression fracture of L2 which is at least in part, chronic. Compression has significantly progressed since comparison CT examination in September 2015. 2. Distended urinary bladder, correlate with urinalysis with cystitis given mild thickening. 3. The urinary bladder is distended with sludge and stones. If additional imaging is clinically warranted, sonography is the modality of choice. Abdomen x-ray shows nonspecific abdominal series, increased density in the lower abdomen to pelvis likely represents distended urinary bladder, stable chronic changes. All other labs and films have been reviewed via the EMR. ASSESSMENT: 1. Sepsis secondary to urinary tract infection with an admitting WBC of 19,600 and a left shift on differential. Lactic acid of 2.4, heart rate 118, systolic blood pressure in the 60s. 2. Decreased mental status, most likely secondary to #1. 3. Mildly supratherapeutic INR. She is on Warfarin therapy for DVTs. 4. Diabetes mellitus type 2. 5. Hyperlipidemia. 6. Generalized osteoarthritis. 7. Hypertension, on medications. 8. Alzheimer's dementia. PLAN: I have admitted the patient to the hospital. I will continue some fluids overnight and will recheck her labs in the morning. I have also continued her on Zosyn as ordered in the Emergency Room and we will continue to monitor her cultures as they become available. I will do neuro checks and put her on sliding scale Humalog insulin with a.c. and h.s. blood sugar checks. We will restart her home medications as soon as they are verified. I will also recheck her PT/INR in the morning and restart her Warfarin therapy when her INR becomes therapeutic. It may be beneficial to talk to [employer]iology [employer] about a code status on this patient as her prognosis is very poor, especially given her advanced dementia. I put her on a PPI for ulcer prophylaxis and will her Coumadin will be restarted which should be sufficient for her DVT prophylaxis. She may need a sonogram in the morning, I am not sure how aggressive her family wants given her care. We will continue to monitor closely and follow as needed. #[id number] RAJEEV
[2019-03-06] MEDS ORDERED: ONDANSETRON INJ 4 MG/2 ML VIAL IV PRN (19:54)
[2019-03-06] MEDS ORDERED: SODIUM CHLORIDE 0.9% (FLUSH) 10 ML SYG IV PRN (19:54)
[2019-03-06] MEDS ORDERED: SODIUM CHLORIDE 0.45% 1000ML 1,000 ML IVS PRN (20:00)
[2019-03-06] MEDS ORDERED: ENOXAPARIN SODIUM 40 MG/0.4 ML SYG SUBCU ONE (20:49)
[2019-03-06] MEDS ORDERED: SODIUM CHL 0.9% 100ML MINI-BAG 100 ML IVPB ONE (20:52)
[2019-03-06] MEDS: PIPERACILLIN/TAZOBACTAM 3.375 GM in SODIUM CHLORIDE 0.9% 100ML 100 ML IVPB SCH (20:57)
[2019-03-06] MEDS: IV SET AND CAP CHANGE INJ INJ SCH (20:58)
[2019-03-06] MEDS ORDERED: ENOXAPARIN SODIUM 40 MG/0.4 ML SYG SUBCU SCH (21:00)
[2019-03-06] MEDS: MORPHINE SULFATE INJ 10 MG/ML VIAL IV PRN (21:43)
[2019-03-06] MEDS ORDERED: DEXTROSE 50% 25 GM/50 ML SYG IV PRN (22:46)
[2019-03-06] MEDS ORDERED: GLUCAGON INJ 1 MG VIAL SUBCU PRN (22:46)
[2019-03-07] MEDS ORDERED: PIPERACILLIN/TAZOBACTAM 3.375 GM VIAL IVPB ONE ×4 (01:16→23:35)
[2019-03-07] MEDS ORDERED: SODIUM CHL 0.9% 100ML MINI-BAG 100 ML IVPB ONE (01:16)
[2019-03-07] MEDS: PIPERACILLIN/TAZOBACTAM 3.375 GM in SODIUM CHLORIDE 0.9% 100ML 100 ML IVPB SCH ×3 (04:36→20:01)
[2019-03-07] MEDS: PANTOPRAZOLE SODIUM IV 40 MG VIAL IV SCH (06:10)
[2019-03-07] MEDS: INSULIN LISPRO 100 UNITS/ML PEN SUBCU SCH ×4 (07:02→21:06)
[2019-03-07] MEDS: MORPHINE SULFATE INJ 10 MG/ML VIAL IV PRN ×2 (08:43→23:38)
[2019-03-07] MEDS: DEX 5% W/NACL 0.45% 1000ML 1,000 ML IVS PRN (09:47)
[2019-03-07] MEDS ORDERED: SODIUM CHLORIDE 0.9% 100ML 100 ML IVPB ONE ×3 (11:58→23:35)
--- NOTE | 2019-03-07 13:54 | PN ---
SUPERVISING PHYSICIAN: Nimesh Peña MD DATE: 03/07/19 SUBJECTIVE: The patient is lying in bed asleep. She awakens easily. She is nonverbal. The nurse reports that she does moan frequently in pain when she is being repositioned. Otherwise, the patient has had no problems overnight. OBJECTIVE: VITAL SIGNS: Temperature 97.9. Heart rate 84. Blood pressure 100/68. Respiratory rate 18. O2 saturation 95% on 2 liters nasal cannula. RESPIRATORY: Diminished at the bases, but otherwise clear to auscultation. CARDIAC: Regular rate and rhythm. GASTROINTESTINAL: Abdomen is soft, nondistended, nontender. Bowel sounds are positive. NEUROLOGIC: She opens her eyes. She does not follow commands. She does moan some in response to questioning. LABORATORY: WBCs have improved to 17,900 with hemoglobin 12.1, hematocrit 36.4. She does have a left shift on her differential. INR is 4.24. Electrolytes show sodium 139, potassium 3.9, chloride 112, carbon dioxide 20. Calcium 9.2, magnesium 1.8. Blood sugars have run between 80 and 126. Bilirubin is improved, but slightly elevated at 1.1. Her preliminary blood cultures are negative to date with a urine culture pending. All other labs and films have been reviewed via the EMR. ASSESSMENT: 1. Sepsis secondary to urinary tract infection with an admitting WBC of 19,600 and a left shift on differential. Lactic acid of 2.4, heart rate 118, systolic blood pressure in the 60s. 2. Decreased mental status, most likely secondary to #1. 3. Mildly supratherapeutic INR. She is on warfarin therapy for deep venous thromboses. 4. Diabetes mellitus, type 2. 5. Hyperlipidemia. 6. Generalized osteoarthritis. 7. Hypertension, on medications. 8. Alzheimer's dementia. PLAN: We will continue present supportive care. We will continue to hold the warfarin at this time and repeat her PT/INR in the morning along with routine labs. I will continue to hold her p.o. medications until she is somewhat more alert and is taking p.o. without problems. I did change her IV fluids to D5 half NS at 60. We will continue to push fluids as well as food. We will continue to monitor her neurologic status closely. We will monitor cultures as they become available. Hopefully, she can be discharged tomorrow or the next day back to the [facility]. #[id number] MTDD
[2019-03-07] MEDS: NYSTATIN POWDER 15GM BTTL TOP SCH ×2 (15:25→20:05)
[2019-03-08] MEDS: MORPHINE SULFATE INJ 10 MG/ML VIAL IV PRN ×2 (01:35→08:59)
[2019-03-08] MEDS: DEX 5% W/NACL 0.45% 1000ML 1,000 ML IVS PRN (01:42)
[2019-03-08] MEDS: PIPERACILLIN/TAZOBACTAM 3.375 GM in SODIUM CHLORIDE 0.9% 100ML 100 ML IVPB SCH ×3 (04:11→19:30)
[2019-03-08] MEDS: PANTOPRAZOLE SODIUM IV 40 MG VIAL IV SCH (06:03)
[2019-03-08] MEDS: INSULIN LISPRO 100 UNITS/ML PEN SUBCU SCH ×4 (07:10→21:00)
[2019-03-08] MEDS ORDERED: HALOPERIDOL LACTATE INJ 5 MG/ML VIAL IM ONE (09:59)
[2019-03-08] MEDS: NYSTATIN POWDER 15GM BTTL TOP SCH ×3 (10:39→21:00)
[2019-03-08] MEDS ORDERED: PIPERACILLIN/TAZOBACTAM 3.375 GM VIAL IVPB ONE ×2 (11:39→19:16)
[2019-03-08] MEDS ORDERED: SODIUM CHLORIDE 0.9% 100ML 100 ML IVPB ONE ×2 (11:40→19:16)
[2019-03-08] MEDS ORDERED: MAGNESIUM SULFATE PREMIX 2GM 2 GM in PREMIX BAG 1 BAG IVPB ONE (11:44)
[2019-03-08] MEDS ORDERED: MAGNESIUM SULFATE PREMIX 2GM 50 ML IVPB ONE (12:04)
[2019-03-08] MEDS: KCL 20MEQ/D5 1/2NS 1,000 ML IVS PRN (12:07)
--- NOTE | 2019-03-08 20:09 | PN ---
DATE: 03/08/19 SUPERVISING PHYSICIAN: Nimesh Peña M.D. SUBJECTIVE: The patient apparently became a little bit agitated this morning and required some Ativan. On rounds this morning the patient was sleeping. She has not had any reported diarrhea or shortness of breath, chest pains or other complications. OBJECTIVE: VITAL SIGNS: Temperature 97.8, pulse 75, blood pressure 102/66, respirations 17, satting 98% on 2 liters nasal cannula. I's and O's show a negative balance of 465 with 1335 in, 1800 out. Weight 57.5 kg. GENERAL: The patient is resting comfortably. She is easily aroused with stimuli but goes back to sleep. She appears to be in no acute distress. CHEST: Lungs are clear to auscultation. HEART: Regular rate and rhythm. ABDOMEN: Soft, non-tender. Positive bowel sounds. EXTREMITIES: Without any edema. NEUROLOGIC: Again, she is alert once awake but will not follow commands very easily. LABORATORY: White count is showing to be returning to baseline levels currently at 11,400 with hemoglobin 11.5, hematocrit 34.6, platelet count 159,000. Differential shows to be with a continued left shift. INR is still elevated at 5.25 with PT 51.6. BUN is showing to be 50, creatinine 0.57, potassium 3.3.. Magnesium is low at 1.7. Other liver functions were within normal limits. MICROBIOLOGY: Urine culture is pending. Blood culture has remained negative at 48 hours. RADIOLOGY: No additional radiographic studies. ASSESSMENT: 1. Urosepsis with an admitting WBC of 19,600 and a left shift on differential. Lactic acid of 2.4, heart rate 118, systolic blood pressure in the 60s with decreased mental status with some confusion and combativeness requiring some Ativan likely secondary to #1. 2. Continued supratherapeutic INR but no signs of bleeding with the patient requiring Warfarin due to deep venous thrombosis. 4. Diabetes mellitus, type 2. 5. Hyperlipidemia. 6. Generalized osteoarthritis. 7. Hypertension, on medications. 8. Alzheimer's dementia. PLAN: Will continue to hold her Warfarin and continue to follow her INR. At this point will hold off on any Vitamin K as she does not appear to be having any episode of bleeding. Although if it does appear that she is bruising easily and INR continues to rise, we may consider giving some Vitamin K if needed. She does remain on D5 half normal saline at a low rate. Will await culture results and target antibiotic therapy as appropriate. She does remain on Zosyn for antibiotic therapy. Until we can transition her back to outpatient management will continue to monitor and treat as needed. #[id number] [facility]
[2019-03-09] MEDS: MORPHINE SULFATE INJ 10 MG/ML VIAL IV PRN ×6 (00:11→23:25)
[2019-03-09] MEDS ORDERED: PIPERACILLIN/TAZOBACTAM 3.375 GM VIAL IVPB ONE ×3 (03:23→19:39)
[2019-03-09] MEDS ORDERED: SODIUM CHLORIDE 0.9% 100ML 100 ML IVPB ONE ×3 (03:23→19:39)
[2019-03-09] MEDS: PIPERACILLIN/TAZOBACTAM 3.375 GM in SODIUM CHLORIDE 0.9% 100ML 100 ML IVPB SCH ×3 (03:55→19:52)
[2019-03-09] MEDS: PANTOPRAZOLE SODIUM IV 40 MG VIAL IV SCH (06:03)
[2019-03-09] MEDS: INSULIN LISPRO 100 UNITS/ML PEN SUBCU SCH ×4 (07:24→20:57)
[2019-03-09] MEDS: NYSTATIN POWDER 15GM BTTL TOP SCH ×3 (08:31→20:56)
[2019-03-09] MEDS: KCL 20MEQ/D5 1/2NS 1,000 ML IVS PRN (11:19)
--- NOTE | 2019-03-09 20:31 | PN ---
DATE: 03/09/19 SUPERVISING PHYSICIAN: Nimesh Peña M.D. SUBJECTIVE: The patient remains afebrile. She has had no episodes of bleeding. She has had a few episodes requiring a little of Ativan at times, but otherwise she has not had any complications. The family did discuss today possibly that they would like to look at pursuing hospice care. OBJECTIVE: VITAL SIGNS: Temperature 98, pulse 73, blood pressure 112/77, respirations 16, satting 95% on room air. I's and O's are showing a positive balance of 990 with 1540 in, 550 out. Weight is 57.5 kg. GENERAL: The patient is resting comfortably. Appears to be in no acute distress. She is confused when she is awake but seems to be back to her normal baseline mental status. CHEST: Lungs were clear to auscultation, just slightly diminished towards the bases. HEART: Regular rate and rhythm. ABDOMEN: Soft, non-tender with active bowel sounds. EXTREMITIES: Without any edema. NEUROLOGIC: She is alert but confused, but will follow basic commands. LABORATORY: INR again is elevated but coming down. It is at 5.09. CBC shows now to be at baseline level at 6.5, hemoglobin and hematocrit are fairly stable at 11.5 and 33.9, platelet count 159,000. Differential does show an improving left shift. Chemistries showed sodium 140, BUN 38, creatinine 0.48. Blood sugars are between 94 and 126. Magnesium 2.2. MICROBIOLOGY: Urine culture showed greater than 100,000 gram negative bacilli with final culture results pending. Blood cultures remain negative after 3 days. ASSESSMENT: 1. Urosepsis with a gram negative bacilli awaiting final culture results with the patient showing good response to antibiotic therapy. 2. Supratherapeutic INR with no current signs of bleeding with the patient having a history of deep venous thrombosis on Warfarin. 4. Diabetes mellitus, type 2. 5. Hyperlipidemia. 6. Generalized osteoarthritis. 7. Hypertension, on medications. 8. Alzheimer's dementia. PLAN: Will continue with current antibiotic therapy awaiting final culture results with the patient being on Zosyn. Will repeat her INR in the morning. She does continue on D5 half normal saline. Discussed with the family. They are wanting to pursue possibly hospice care which will work on a consultation but possibly discharging back to the care facility. Until that point will continue to monitor and treat as needed. #[id number] MTDD
[2019-03-09] MEDS: IV SET AND CAP CHANGE INJ INJ SCH (20:55)
[2019-03-10] MEDS ORDERED: PIPERACILLIN/TAZOBACTAM 3.375 GM VIAL IVPB ONE ×2 (00:27→11:37)
[2019-03-10] MEDS ORDERED: SODIUM CHLORIDE 0.9% 100ML 100 ML IVPB ONE ×2 (00:28→11:37)
[2019-03-10] MEDS: KCL 20MEQ/D5 1/2NS 1,000 ML IVS PRN (02:42)
[2019-03-10] MEDS: PIPERACILLIN/TAZOBACTAM 3.375 GM in SODIUM CHLORIDE 0.9% 100ML 100 ML IVPB SCH ×2 (04:04→11:53)
[2019-03-10 05:44] VITALS: TEMP 98.2
[2019-03-10] MEDS: PANTOPRAZOLE SODIUM IV 40 MG VIAL IV SCH (06:12)
[2019-03-10] MEDS: INSULIN LISPRO 100 UNITS/ML PEN SUBCU SCH ×2 (07:19→11:53)
[2019-03-10 07:38] VITALS: O2SAT 94
[2019-03-10] MEDS: NYSTATIN POWDER 15GM BTTL TOP SCH ×2 (08:39→15:30)
[2019-03-10] MEDS: MORPHINE SULFATE INJ 10 MG/ML VIAL IV PRN (08:39)
[2019-03-10 12:44] VITALS: BP 124/80
--- NOTE | 2019-03-21 15:46 | DS ---
SUPERVISING PHYSICIAN: Nimesh Peña MD ADMISSION DIAGNOSIS: 1. Sepsis secondary to urinary tract infection with an admitting WBC of 19,600 and a left shift on differential. Lactic acid of 2.4, heart rate 118, systolic blood pressure in the 60s. 2. Decreased mental status, most likely secondary to #1. 3. Mildly supratherapeutic INR. She is on warfarin therapy for deep venous thromboses. 4. Diabetes mellitus, type 2. 5. Hyperlipidemia. 6. Generalized osteoarthritis. 7. Hypertension, on medications. 8. Alzheimer's dementia. DISCHARGE DIAGNOSIS: 1. Sepsis secondary to urinary tract infection due to Escherichia coli that was fairly resistant, but sensitive to ceftriaxone, ciprofloxacin, levofloxacin, Bactrim and Zosyn with the patient showing good response to treatment course. 2. Supratherapeutic INR with no episodes of bleeding with history of deep venous thrombosis on warfarin with INR slowly returning to baseline therapeutic levels. 4. Diabetes mellitus, type 2. 5. Hyperlipidemia. 6. Generalized osteoarthritis. 7. Hypertension, on medications. 8. Alzheimer's dementia. REASON FOR HOSPITALIZATION: This is an 88 year-old female [facility] She has a longstanding history of dementia. In the last day or so she has not responded to others like she has in the past. Her mental status has declined. She also was complaining of abdominal pain. Yesterday, she was in her normal mental status which is severe dementia but today she was only moaning and groaning. She was brought to the Emergency Room and in the Emergency Room vital signs were temperature of 97.7 with a heart rate of 104. Her blood pressure was as low as 89/53 and dropped to as low as 62/47. She received some fluids and then her blood pressure came up to 100/80. A Lee catheter was placed and a urinalysis was obtained. Her urinalysis showed brown in color with greater than 300 of protein, 15 urine ketones, large amount of urine blood, small amount of urine bilirubin, large amount of urine leukocyte esterase, 20 to 30 urine RBCs, too numerous to count WBCs and 4+ urine bacteria. Laboratory was also drawn and her WBCs were 19,600 with a hemoglobin of 13 and hematocrit of 39.8. She had a left shift on her differential. Her INR was 3.18. She is on Warfarin therapy for DVTs. Sodium 138, potassium 4.3, chloride 110, carbon dioxide 18, BUN 52, creatinine 0.88. Random glucose was 126. Serum osmolality 291.3 with lactic acid of 2.4. Followup lactic acid was 1.9. Magnesium 1.7, total bilirubin 1.4. Alkaline phosphatase 40, creatinine kinase 151. CKMB 6.4, troponin 0.32. She had no complaints of chest pain. She was tachycardiac on the nuclear monitoring technician. Her BNP was slightly elevated at 271. Serum total protein was 5.6 with albumin of 3. Amylase 27, lipase 21. Blood cultures wee drawn. A culture was done on her urine. She was started on Zosyn and I was called for hospital admission. LABORATORY: Initial white count 19,600. Prior to discharge, it was 6,500. Hemoglobin 11.5 and hematocrit 33.9, stable. Platelet count 159,000. Differential did show a left shift. This was resolving prior to discharge. Coagulation studies did show an elevation of her INR. It was initially 3.18 and went up to a maximum of 5.25 and was returning to baseline levels and therapeutic at 4.73 with no episodes of bleeding. Chemistries initially on admission showed carbon dioxide was low, but other electrolytes were within normal limits. BUN was elevated at 52, creatinine 0.88. She did have an elevated lactic acid, but after fluids and recheck, it went down to 1.9. She did have an elevated troponin initially at 0.32. At discharge, sodium and potassium were normal. Carbon dioxide had come up to 20. BUN was 61 and creatinine 0.88. Magnesium was normal at 1.8. Amylase and lipase were normal. Urinalysis showed microscopic revealed 4+ bacteria with too numerous to count WBCs with dipstick reading greater than 300 sugar with 15 ketones, large amount of blood, small amount of bilirubin with large amount of leukocyte esterase. MICROBIOLOGY: As noted above, final culture results showed a fairly resistant E. coli, but sensitive to ceftriaxone, ciprofloxacin, levofloxacin, Bactrim and Zosyn with the patient showing good response to treatment course. RADIOLOGY: She had an abdominal x-ray in the Emergency Room prior to admission and per radiologic interpretation showed nonspecific abdominal series. She did have an abdominopelvic CT without contrast and per radiologic interpretation showed marked compression fracture at L1 which is at least in part chronic. Please see that report for details. There was also note of distended urinary bladder, correlate with urinalysis for cystitis and urinary bladder distended with sludge and stones. EKG in the Emergency Room showed sinus tachycardia with some PVCs and inferior infarct that was old compared to previous exam, nothing acute was noted. HOSPITAL COURSE: Ms. Salazar was admitted for sepsis secondary to urinary tract infection. She was started on antibiotic coverage awaiting cultures initially with Zosyn. Her sensitivity was sensitive to Zosyn. Once culture returned, she was transitioned to oral management and felt clinically well enough to discharge home. Her discharge vital signs showed: Temperature 98.2. Pulse 57. Blood pressure 124/80. Respirations 20. Oxygen saturation 94% on 2 liter nasal cannula. PLAN: Ms. Almonte was discharged on 03/10/19 and actually transitioned to cefdinir as an outpatient. She was returned back to [facility]. They were to hold Coumadin until PT/INR was checked on 03/13/19 and then to call Dr. Alvarez's office for resuming warfarin therapy. She was to return to the hospital for any worsening symptoms. Diet was to resume usual diet. Activity per physical therapy. MEDICATIONS ON DISCHARGE: 1. Cefdinir 300 mg twice daily, #14. 2. Coumadin 2.5 mg, Wednesday, Wednesday, Wednesday, , Wednesday, but to be held until PT/INR completed on 03/13/[address] Alvarez's office for guidance based on levels. CONDITION AT DISCHARGE: Stable and improved. DISPOSITION: The patient was discharged back to [facility]. #[id number]
== END 2019-03-10 15:35 | DRG 690 ==
LOC: ER 13:40 → MS 19:13
PROVIDERS: ADMIT Nurse Practitioner Acute Care; ATTEND Nurse Practitioner Family
DX: N39.0 Urinary tract infection, site not specified (principal); I95.9 Hypotension, unspecified; G30.9 Alzheimer's disease, unspecified; F02.80 Dementia in other diseases classified elsewhere, unspecified severity, without behavioral disturbance, psychotic disturbance, mood disturbance, and anxiety; M15.0 Primary generalized (osteo)arthritis; I10 Essential (primary) hypertension; E78.5 Hyperlipidemia, unspecified; E11.9 Type 2 diabetes mellitus without complications; F32.9 Major depressive disorder, single episode, unspecified; R62.7 Adult failure to thrive; Z66 Do not resuscitate; Z86.718 Personal history of other venous thrombosis and embolism; Z79.01 Long term (current) use of anticoagulants; Z79.1 Long term (current) use of non-steroidal anti-inflammatories (NSAID); Z79.84 Long term (current) use of oral hypoglycemic drugs; Z79.899 Other long term (current) drug therapy; Z68.21 Body mass index [BMI] 21.0-21.9, adult

== ENCOUNTER 2019-03-12 22:39 | Emergency (ER) | payer MEDICARE, OTHER ==
[2019-03-12 22:55] VITALS: O2SAT 98
[2019-03-12] MEDS ORDERED: SODIUM CHLORIDE 0.9% 1000ML 1,000 ML ONE ×2 (23:03→23:39)
--- NOTE | 2019-03-12 23:08 | ED.PDOC ---
History of Present Illness - General Chief Complaint: Problem Stated Complaint: blood in catheter, low O2 sats Time Seen by Provider: 03/12/19 22:55 Source: patient Exam Limitations: clinical condition - dementia - History of Present Illness Initial Comments: Kaitlynn Salazar 88 y/o [place] resident at [facility] brought by EMS with bloody urine and reported low Sao2-78% at SD.On her arrival here at ER she was found to have normal Sao2 -98 % but with bloody urine on her diane cath.she was awake ,alert but confused stating she needs help stating wants to go back to her room.Recently admitted for urosepsis last week at [facility].Had CT abd/A-[id number] no hydronephrosisi ,no renal stones w/ mild urinary bladder thickening Timing/Duration: this morning Quality: moderate Onset Location: unknown Radiation: none Activites at Onset: none, other - patient bedridden Sexual intercourse history: not active Improving Factors: nothing Worsening Factors: nothing Allergies/Adverse Reactions: Allergies NO KNOWN ALLERGY Allergy (Verified 03/07/19 03:09) Home Medications: Ambulatory Orders Simvastatin 20 mg PO BEDTIME 01/01/14 amLODIPine BESYLATE [Norvasc] 5 mg PO DAILY #0 tab 01/02/14 Potassium Chloride [Potassium Chloride ER] 20 meq PO BID #4 tab 11/19/14 Polyethylene Glycol 3350 [Miralax] 17 gm PO DAILY PRN 08/28/15 Meloxicam [Mobic] 7.5 mg PO DAILY #30 tab 10/02/15 Acetamin W/Cod #3 Tab [Tylenol w/CODEINE #3] 1 ea PO Q12HRS PRN #20 tab 01/21/18 Fluoxetine HCl [Prozac] 20 mg PO DAILY 03/07/19 Guaifenesin 400 mg PO BID PRN 03/07/19 Losartan Potassium & Hydrochlo [Losartan Potassium/Hydroc 100-12.5 mg] 1 tab PO DAILY 03/07/19 Magnesium Hydroxide [Milk Of Magnesia] 30 ml PO DAILY PRN 03/07/19 Metformin HCl [Metformin Hydrochloride] 500 mg PO DAILY 03/07/19 Nystatin Powder 15 gm TOP TID 03/07/19 Prochlorperazine Tab [Compazine Tab] 10 mg PO Q4H PRN 03/07/19 guaiFENesin/DEXTROMETH SYRUP [Robitussin Dm] 10 ml PO Q6H PRN 03/07/19 Cefdinir [Omnicef] 300 mg PO BID #14 cap 03/10/19 Warfarin Sodium [Coumadin] 2.5 mg PO MOTUWETHSA #0 03/10/19 Ceftriaxone Sodium 1 gm IM Q24HR 3 Days #3 inj 03/13/19 Review of Systems - Review of Systems Genitourinary: States: see HPI, hematuria - gross Unable to Obtain Due To: dementia All other Systems: Reviewed and Negative, No Change from Baseline Past Medical History (General) - Patient Medical History Hx Seizures: No Hx Stroke: No Hx Dementia: Yes Hx Asthma: No Hx of COPD: No Hx Cardiac Disorders: Yes Hx Congestive Heart Failure: No Hx Pacemaker: No Hx Hypertension: Yes Hx Thyroid Disease: Yes Hx Diabetes: Yes Hx Gastroesophageal Reflux: Yes Hx Renal Disease: No Hx Cancer: No Hx of HIV: No Hx Hepatitis C: No Hx MRSA: No Surgical History: other - knees - Vaccination History Hx Tetanus, Diphtheria Vaccination: Yes Hx Influenza Vaccination: Yes Hx Pneumococcal Vaccination: Yes Immunizations Up to Date: Yes - Social History Hx Tobacco Use: No Hx Chewing Tobacco Use: No Hx Alcohol Use: No Hx Substance Use: No Hx Substance Use Treatment: No Hx Depression: No Hx Physical Abuse: No Hx Emotional Abuse: No Hx Suspected Abuse: No - Activities of Daily Living Patient Lives Alone: No Senior Living/Assisted Living (if applicable):: [place] G[place]ing Ability: Maximum Assistance Eating (Feeding) Ability: Maximum Assistance Toileting Ability: Maximum Assistance - Female History Patient is a Female of Child Bearing Age (10 -59 yrs old): No Patient : No - Triage Comment ED Triage Comment: pt confused, unable to obain history, dementia Family Medical History - Family History Father Family History: Unknown Living Status: Age at (years of age): 80s Cause of : Cancer Mother Family History: No Known Living Status: Age at (years of age): 70s Cause of : Cancer Hx Family Asthma: No Hx Family Congestive Heart Failure: No Hx Family Hypertension: No Hx Family Stroke: No Hx Cardiac Disease: No Hx Family Diabetes: No Hx Family Cancer: No Physical Exam - Physical Exam General Appearance: Alert, No apparent distress, Other - confused;cooperative; Eyes, Ears, Nose, Throat Exam: normal ENT inspection, other - dry oral mucosa Neck: supple, normal inspection Cardiovascular/Respiratory: no M/R/G, normal peripheral pulses, no respiratory distress, irregularly irregular Gastrointestinal/Abdominal: soft, tenderness - suprapubic area,no peritoneal signs Pelvic Exam: other - gross hematuria/diane Back Exam: normal inspection, no CVA tenderness, no vertebral tenderness Extremity: no pedal edema, no calf tenderness Neurologic: alert, disoriented x 3 Skin Exam: normal color, warm/dry Progress - Progress Progress: 03/12/19 23:16 Vital Signs - 8 hr 03/12/19 22:51 Temperature 97.2 F L Pulse Rate [ 84 Right] Respiratory 18 Rate Blood Pressure 140/96 [Left Arm] O2 Sat by Pulse 98 Oximetry 03/13/19 01:21 Vital Signs - 8 hr 03/12/19 03/12/19 03/13/19 22:51 23:40 01:00 Temperature 97.2 F L Pulse Rate [ 84 88 75 Right] Respiratory 18 Rate Blood Pressure 140/96 161/82 157/89 [Left Arm] O2 Sat by Pulse 98 98 Oximetry 03/13/19 02:02 Urinary Bladder irrigation done with NS 3L return flow/catheter getting less bloody ;blood clots clogging catheter manually aspirated with 20 cc syringe from diane cath - Results/Orders Results/Orders: 03/12/19 23:08 IV Care:Saline Lock per Protoc QSHIFT Irrigation:Bladder Continuous .PRN Urine Culture Stat 03/12/19 23:13 EKG Assessment ONCE 03/12/19 23:15 EKG STAT 03/13/19 01:01 cefTRIAXone SODIUM [Rocephin] 1 gm Sodium Chl 0.9% 50Ml Min-Bag+ [NS 50ml MINI-BAG+] 50 ml IVPB ONCE Laboratory Results - last 24 hr 03/12/19 03/12/19 03/12/19 23:08 23:08 23:08 WBC 8.0 RBC 3.21 L Hgb 10.7 L Hct 31.5 L MCV 98.1 MCH 33.4 H MCHC 34.1 RDW 14.8 H Plt Count 186 MPV 8.5 Absolute Neuts (auto) 5.90 Absolute Lymphs (auto) 1.20 Absolute Monos (auto) 0.90 H Absolute Eos (auto) 0.10 Absolute Basos (auto) 0.00 Neutrophils % 73.3 Lymphocytes % 14.7 L Monocytes % 10.9 H Eosinophils % 0.6 L Basophils % 0.5 PT 28.3 H* INR 2.86 H PTT (SP) 32.3 H Sodium 139 Potassium 3.3 L Chloride 109 Carbon Dioxide 22 Anion Gap 11.3 L BUN 26 H Creatinine 0.54 L D BUN/Creatinine Ratio 48.1 H Random Glucose 109 H Serum Osmolality 282.9 Lactic Acid 1.5 Calcium 9.1 Magnesium 1.7 L Total Bilirubin 0.8 Direct Bilirubin 0.3 H Indirect Bilirubin 0.5 AST 28 ALT 23 Alkaline Phosphatase 32 L Creatine Kinase 53 CK-MB (CK-2) 8.2 H* CK-MB (CK-2) % 15.47 H Troponin I 0.02 Serum Total Protein 5.4 L Albumin 2.9 L Urine Color Red H Urine Appearance Turbid Urine pH 6.5 Ur Specific Orange 1.015 Urine Protein 100 H Urine Glucose (UA) Negative Urine Ketones Negative Urine Blood Large H Urine Nitrite Negative Urine Bilirubin Negative Urine Urobilinogen 0.2 Ur Leukocyte Esterase Small H Urine RBC Tntc H Urine WBC Obscured by rbc's H Ur Epithelial Cells Obscured by rbc's Urine Bacteria Obscured by rbc's H Urine Culture reviewed results 09 March 2019 showing sensitive to Ceftriaxone and presently on oral Cefdinir w/c is questionable for uti - EKG/XRAY/CT EKG: Sinus, RBBB Comments: HR-82;PAC's Departure - Departure Clinical Impression: Acute hemorrhagic cystitis, Gross hematuria, History of dementia Time of Disposition: 02:06 Disposition: Discharge to SNF Condition: Fair Departure Forms: ED Discharge - Pt. Copy, Patient Portal Self Enrollment Referrals: LINDA CHAPARRO [Primary Care Provider] - 1-2 Weeks Prescriptions: Ceftriaxone Sodium 1 gm IM Q24HR 3 Days #3 inj Home Medications: Ambulatory Orders Simvastatin 20 mg PO BEDTIME 01/01/14 amLODIPine BESYLATE [Norvasc] 5 mg PO DAILY #0 tab 01/02/14 Potassium Chloride [Potassium Chloride ER] 20 meq PO BID #4 tab 11/19/14 Polyethylene Glycol 3350 [Miralax] 17 gm PO DAILY PRN 08/28/15 Meloxicam [Mobic] 7.5 mg PO DAILY #30 tab 10/02/15 Acetamin W/Cod #3 Tab [Tylenol w/CODEINE #3] 1 ea PO Q12HRS PRN #20 tab 01/21/18 Fluoxetine HCl [Prozac] 20 mg PO DAILY 03/07/19 Guaifenesin 400 mg PO BID PRN 03/07/19 Losartan Potassium & Hydrochlo [Losartan Potassium/Hydroc 100-12.5 mg] 1 tab PO DAILY 03/07/19 Magnesium Hydroxide [Milk Of Magnesia] 30 ml PO DAILY PRN 03/07/19 Metformin HCl [Metformin Hydrochloride] 500 mg PO DAILY 03/07/19 Nystatin Powder 15 gm TOP TID 03/07/19 Prochlorperazine Tab [Compazine Tab] 10 mg PO Q4H PRN 03/07/19 guaiFENesin/DEXTROMETH SYRUP [Robitussin Dm] 10 ml PO Q6H PRN 03/07/19 Cefdinir [Omnicef] 300 mg PO BID #14 cap 03/10/19 Warfarin Sodium [Coumadin] 2.5 mg PO MOTUWETHSA #0 03/10/19 Ceftriaxone Sodium 1 gm IM Q24HR 3 Days #3 inj 03/13/19 Additional Instructions: discontinue Cefdinir;Give Rocephin 1 GM intramuscular every 24 hours for 3 days;Remove diane cath after 3 days;return to emergency Room as needed;Continue with rest of home medications
[2019-03-12] MEDS ORDERED: SODIUM CHLORIDE 0.9% 500ML 500 ML IVS ONE (23:10)
[2019-03-13] MEDS ORDERED: cefTRIAXone SODIUM 1 GM in SODIUM CHL 0.9% 50ML MIN-BAG+ 50 ML IVPB ONE (01:01)
[2019-03-13] MEDS ORDERED: SODIUM CHLORIDE 0.9% 1000ML 1,000 ML ONE ×2 (01:03→01:35)
[2019-03-13] MEDS ORDERED: cefTRIAXone SODIUM 1 GM VIAL ONE (01:03)
[2019-03-13] MEDS ORDERED: SODIUM CHL 0.9% 50ML MIN-BAG+ 50 ML IVPB ONE (01:04)
[2019-03-13 02:39] VITALS: BP 155/90; TEMP 97.4
== END 2019-03-13 02:47 ==
LOC: ER 22:39
DX: N30.01 Acute cystitis with hematuria (principal); F03.90 Unspecified dementia, unspecified severity, without behavioral disturbance, psychotic disturbance, mood disturbance, and anxiety; I45.10 Unspecified right bundle-branch block; I49.1 Atrial premature depolarization; I51.9 Heart disease, unspecified; I10 Essential (primary) hypertension; E07.9 Disorder of thyroid, unspecified; K21.9 Gastro-esophageal reflux disease without esophagitis; Z79.899 Other long term (current) drug therapy; Z79.84 Long term (current) use of oral hypoglycemic drugs; Z79.01 Long term (current) use of anticoagulants; Z87.440 Personal history of urinary (tract) infections
CPT/HCPCS: 36415; 80048; 80076; 81001; 82550; 82553; 83605; 84484; 85025; 85610; 85730; 87086; 93005; J0696; J7030; J7040; J7050